=== PATIENT | male | born 1980 | race Caucasian/White ===

== ENCOUNTER 2018-07-21 16:05 | Emergency (ER) | payer BC, OTHER ==
[2018-07-21 16:38] VITALS: BP 137/83
[2018-07-21] MEDS ORDERED: Lidocaine 2% PF * 5 ML VIAL INJ ONE (16:46)
[2018-07-21] MEDS ORDERED: Tetan/Diph/Pertus SYR(Tdap)* 0.5 ML SYR(BOOSTRIX) use SYR IM ONE (17:17)
--- NOTE | 2018-07-21 17:47 | UC ---
Skin Complaint HPI - HPI Summary HPI Summary: 27 yo male presents with laceration to left hand. He tells me that he was at work when a metal casing for a light switch outlet slipped and sliced his left fingers. He sustained one small laceration to his left index finger and one the his left ring finger. His left middle finger has a larger laceration. Unsure date of last tetanus. He bandaged the area and came to urgent care. - History of Current Complaint Chief Complaint: UCLaceration Time Seen by Provider: 07/21/18 16:42 Stated Complaint: FINGER LACERATIONS Hx Obtained From: Patient Onset/Duration: Sudden Onset Onset Severity: Mild Current Severity: Mild Pain Intensity: 1 Pain Scale Used: 0-10 Numeric - Allergy/Home Medications Allergies/Adverse Reactions: Allergies Allergy/AdvReac Type Severity Reaction Status Date / Time No Known Allergies Allergy Verified 07/21/18 16:39 Review of Systems Constitutional: Negative Skin: Other - Lacerations left fingers Respiratory: Negative Cardiovascular: Negative Motor: Negative Neurovascular: Negative Musculoskeletal: Negative Neurological: Negative Psychological: Negative All Other Systems Reviewed And Are Negative: Yes PMH/Surg Hx/FS Hx/Imm Hx - Additional Past Medical History Additional PMH: None - Surgical History Surgical History: None - Family History Known Family History: Positive: None - Social History Occupation: Employed Full-time Lives: With Family Alcohol Use: Occasionally Substance Use Type: None Smoking Status (MU): Former Smoker Amount Used/How Often: chewing tobacco Physical Exam - Summary Physical Exam Summary: GENERAL: NAD. WDWN. No pain distress. SKIN: Left index finger: dorsal proximal aspect with 3mm linear laceration - well approximated and clotted. Left ring finger: distal finger pad with 5mm superficial linear laceration - well approximated and clotted. Left middle finger pad with 1.0cm linear laceration with 3mm width and mild exposed subcutaneous tissue. Mild bleeding. NECK: Supple. Nontender. No lymphadenopathy. CHEST: No accessory muscle use. Breathing comfortably and in no distress. CV: Pulses intact. Cap refill <2seconds MSK: FROM all fingers NEURO: Alert. PSYCH: Age appropriate behavior. Triage Information Reviewed: Yes Vital Signs: Initial Vital Signs Temp 98.4 F 07/21/18 16:33 Pulse 82 07/21/18 16:33 Resp 16 07/21/18 16:33 BP 137/83 07/21/18 16:33 Pulse Ox 98 07/21/18 16:33 Vital Signs Reviewed: Yes Course/Dx - Course Course Of Treatment: A time out was performed, witnessed, and signed. The area was irrigated with 500mL sterile saline. 2mL of 2% lidocaine without epi was administered as a digital block to the LEFT middle finger and good anesthetization was achieved. In the usual sterile fashion, FIVE 6-0 prolene interrupted sutures were placed. The wound was bandaged with telfa. Dermabond was applied to the other two small superficial lacerations. Pt tolerated procedure well. tdap updated today - Diagnoses Provider Diagnoses: Laceration left middle finger. Laceration left index finger. Laceration left ring finger Discharge - Sign-Out/Discharge Documenting (check all that apply): Patient Departure All imaging exams completed and their final reports reviewed: No Studies - Discharge Plan Condition: Stable Disposition: HOME Patient Education Materials: Care For Your Stitches (DC), Laceration (ED) Referrals: Reji Moy NP [Primary Care Provider] - Additional Instructions: If you develop a fever, shortness of breath, chest pain, new or worsening symptoms - please call your PCP or go to the ED. Your blood pressure was high at todays visit. Please see your primary provider within 4 weeks for recheck and re-evaluation. 1) Please keep the area bandaged, clean, dry, and intact for the next 24- 48hours. 2) If you develop a fever, colored or thick discharge, increased pain or swelling - please call your PCP or go to the ED. 3) Please return in 10 days to have your FIVE sutures removed. - Billing Disposition and Condition Condition: STABLE Disposition: Home - Attestation Statements Provider Attestation: I was available for consult. This patient was seen by the TERENCE. The patient was not presented to, seen by, or examined by me. -Mariluz
== END 2018-07-21 18:09 | disposition home or self-care (01) ==
LOC: UCEAST 16:05
DX: S61.213A Laceration without foreign body of left middle finger without damage to nail, initial encounter (principal); S61.211A Laceration without foreign body of left index finger without damage to nail, initial encounter; S61.215A Laceration without foreign body of left ring finger without damage to nail, initial encounter; W26.8XXA Contact with other sharp object(s), not elsewhere classified, initial encounter; Y93.9 Activity, unspecified; Y92.9 Unspecified place or not applicable; Y99.0 Civilian activity done for income or pay; Z23 Encounter for immunization; Z87.891 Personal history of nicotine dependence
CPT/HCPCS: 12001; 90471; 90715; 99201; G0463

== ENCOUNTER 2019-05-12 03:12 | Emergency (ER) | payer BC ==
[2019-05-12 03:17] VITALS: BP 135/100
--- NOTE | 2019-05-12 03:49 | ED ---
Throat Pain/Nasal Congestion - HPI Summary HPI Summary: This patient is a 38 year old M presenting to [facility] with a chief complaint of right ear pain since 2 days ago. Patient states that he went swimming in the ocean and did not dry his ears after swimming. He notes he has never had an ear infection before. Patient reports cheek pain and inability to close jaw all the way. Patient denies fever. The patient rates the pain 8/10 in severity. Symptoms aggravated by nothing. Symptoms alleviated by nothing. - History of Current Complaint Chief Complaint: EDEarPain Time Seen by Provider: 05/12/19 03:26 Hx Obtained From: Patient Onset/Duration: Sudden Onset, Lasting Days - 2 Severity: Severe Cough: None - Allergies/Home Medications Allergies/Adverse Reactions: Allergies Allergy/AdvReac Type Severity Reaction Status Date / Time No Known Allergies Allergy Verified 05/12/19 03:14 PMH/Surg Hx/FS Hx/Imm Hx Previously Healthy: No Endocrine/Hematology History: Denies: Hx Diabetes, Hx Thyroid Disease Cardiovascular History: Denies: Hx Congestive Heart Failure, Hx Hypertension, Hx Pacemaker/ICD, Other Cardiovascular Problems/Disorders Respiratory History: Denies: Hx Asthma, Hx Chronic Obstructive Pulmonary Disease (COPD), Other Respiratory Problems/Disorders GI History: Denies: Hx Ulcer Sensory History: Denies: Hx Hearing Aid EENT History: Denies: Hx Deafness Psychiatric History: Denies: Hx Panic Disorder - Surgical History Surgical History: None Infectious Disease History: No Infectious Disease History: Denies: Hx Hepatitis, Hx Human Immunodeficiency Virus (HIV), Traveled Outside the [place] in Last 30 Days - Family History Known Family History: Positive: None - Social History Alcohol Use: Occasionally Hx Substance Use: No Substance Use Type: Reports: None Smoking Status (MU): Former Smoker Amount Used/How Often: chewing tobacco Review of Systems Negative: Fever ENT: Other - positive - cheek pain and inability to close jaw all the way Positive: Ear Ache - right ear pain All Other Systems Reviewed And Are Negative: Yes Physical Exam - Summary Physical Exam Summary: VITAL SIGNS: Reviewed. GENERAL: Patient is a well-developed and nourished MALE who is lying comfortable in the stretcher. Patient is not in any acute respiratory distress. HEAD AND FACE: No signs of trauma. No ecchymosis, hematomas or skull depressions. No sinus tenderness. EYES: PERRLA, EOMI x 2, No injected conjunctiva, no nystagmus. EARS: right tragal tenderness, pain with right auricle movement, EAC tender hyperemic and edematous, tympanic membranes are within normal limits. MOUTH: Oropharynx within normal limits. NECK: Supple, trachea is midline, no adenopathy, no JVD, no carotid bruit, no c- spine tenderness, neck with full ROM CHEST: Symmetric, no tenderness at palpation LUNGS: Clear to auscultation bilaterally. No wheezing or crackles. CVS: Regular rate and rhythm, S1 and S2 present, no murmurs or gallops appreciated. ABDOMEN: Soft, non-tender. No signs of distention. No rebound no guarding, and no masses palpated. Bowel sounds are normal. EXTREMITIES: FROM in all major joints, no edema, no cyanosis or clubbing. NEURO: Alert and oriented x 3. No acute neurological deficits. Speech is normal and follows commands. SKIN: Dry and warm Triage Information Reviewed: Yes Vital Signs On Initial Exam: Initial Vitals Temp Pulse Resp BP Pulse Ox 99.1 F 84 15 135/100 95 05/12/19 03:13 05/12/19 03:13 05/12/19 03:13 05/12/19 03:13 05/12/19 03:13 Vital Signs Reviewed: Yes Diagnostics - Vital Signs Vital Signs Temp Pulse Resp BP Pulse Ox 05/12/19 03:13 99.1 F 84 15 135/100 95 - Laboratory Lab Statement: Any lab studies that have been ordered have been reviewed, and results considered in the medical decision making process. EENT Course/Dx - Course Course Of Treatment: This patient is a 38 year old M presenting to [facility] with a chief complaint of right ear pain since 2 days ago. Patient states that he went swimming in the ocean and did not dry his ears after swimming. He notes he has never had an ear infection before. Patient reports cheek pain and inability to close jaw all the way. Patient denies fever. The patient rates the pain 8/10 in severity. Symptoms aggravated by nothing. Symptoms alleviated by nothing. Physical exam findings show right tragal tenderness, pain with right auricle movement and EAC tender hyperemic and edematous, TM normal. During the ED course, the patient was given Ciprodex. Final diagnosis is right otitis externa. Patient is agreeable to discharge. Patient was told to place 4 drops of Ciprodex to his right ear twice a day for seven days. He was also told to follow up with a primary care provider within 1-2 days and to return to the ED for any new or worsening symptoms. - Diagnoses Provider Diagnoses: Right otitis externa Discharge - Sign-Out/Discharge Documenting (check all that apply): Patient Departure - discharge Patient Received Moderate/Deep Sedation with Procedure: No - Discharge Plan Condition: Stable Disposition: HOME Patient Education Materials: Otitis Externa (ED) Referrals: No Primary Care Phys,NOPCP [Primary Care Provider] - Care [facility] [Outside] - 1 [address] Additional [address]ructions: [address] 4 drops of Ciprodex to right ear twice a day for seven days. Follow up with a primary care provider within 1-2 days. Return to the ED for any new or worsening symptoms. - Attestation Statements Document Initiated by Valeibe: Yes Documenting Scribe: Da Izaguirre Provider For Whom Shemar is Documenting (Include Credential): Dr. Jesús Kevin MD Scribe Attestation: I, Da Izaguirre scrjoseed for Dr. Jesús Kevin MD on 05/12/19 at 0611. Status of Scribe Document: Ready
[2019-05-12] MEDS ORDERED: Ciproflox/Dexameth OTIC.SUSP* 7.5 ML BTL RIGHT EAR SCH (04:00)
== END 2019-05-12 03:57 | disposition home or self-care (01) ==
LOC: ED 03:12
DX: H60.91 Unspecified otitis externa, right ear (principal); H92.01 Otalgia, right ear; Z87.891 Personal history of nicotine dependence
CPT/HCPCS: 99282; A9270-GY